=== PATIENT | female | born 1990 | race African-American/Black ===

== ENCOUNTER 2016-11-28 19:05 | Emergency (ER) | payer OTHER ==
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
[2016-11-28] MEDS ORDERED: IBUPROFEN 600 MG TABLET (FP) PO ONE ×2 (19:35→20:01)
[2016-11-28 19:56] VITALS: BP 117/86; PULSE 70; TEMP 99.1; BMI 33.0
== END 2016-11-28 20:07 | disposition home or self-care (01) ==
LOC: FER 19:05
DX: S39.012A Strain of muscle, fascia and tendon of lower back, initial encounter (principal); V43.62XA Car passenger injured in collision with other type car in traffic accident, initial encounter; Y93.89 Activity, other specified; Y92.410 Unspecified street and highway as the place of occurrence of the external cause
CPT/HCPCS: 99282-25